=== PATIENT | male | born 1965 | race African-American/Black ===

== ENCOUNTER 2017-12-06 23:42 | Emergency (ER) | payer MEDICAID ==
[~2017-12-06] VITALS: Ht 154.9 cm; Wt 55.0 kg
[2017-12-06 23:45] VITALS: BP 139/99
== END 2017-12-07 05:09 | disposition left against medical advice (07) ==
LOC: ER 23:42
DX: Z53.21 Procedure and treatment not carried out due to patient leaving prior to being seen by health care provider (principal); F17.200 Nicotine dependence, unspecified, uncomplicated

== ENCOUNTER 2019-03-07 23:18 | Emergency (ER) | payer MEDICAID ==
[~2019-03-07] VITALS: Ht 147.3 cm; Wt 46.0 kg
[2019-03-08] MEDS ORDERED: ONDANSETRON HCL 4MG/2ML INJ IV STA (03:07)
[2019-03-08] MEDS ORDERED: KETOROLAC 30MG/ML VIAL IV STA (03:07)
[2019-03-08] MEDS ORDERED: SODIUM CHLORIDE 0.9% 1,000 ML IV ONE (03:07)
[2019-03-08 03:58] LABS: BASOPHILS % 0.1 % (0.0-2.0); EOSINOPHILS % 0.4 % (0.0-5.0); HEMATOCRIT. 33.2 % (36.0-48.0); HEMOGLOBIN. 11.5 g/dL (12.0-16.0); LYMPHOCYTES % 7.7 % (20.0-50.0); MEAN CORPUSCULAR HEMOGLOBIN 28.7 pg (28.0-32.0); MEAN CORPUSCULAR VOLUME 83.1 fL (81.0-99.0); MEAN PLATELET VOLUME 7.8 fl (7.4-10.4); MONOCYTES % 5.4 % (2.0-8.0); NEUTROPHILS % 86.4 % (40.0-76.0); PLATELET 300 x1000/uL (130-400); RED CELL DISTRIBUTION WIDTH 15.3 % (11.6-14.6)
[2019-03-08 04:04] LABS: CHLORIDE 107 mEq/L (98-107)
[2019-03-08] MEDS ORDERED: IOHEXOL-300 100 ML BOTTLE ONE (06:00)
[2019-03-08 08:00] VITALS: BP 157/87
== END 2019-03-08 09:08 | disposition left against medical advice (07) ==
LOC: ER 23:18
DX: S39.91XA Unspecified injury of abdomen, initial encounter (principal); S29.9XXA Unspecified injury of thorax, initial encounter; E11.9 Type 2 diabetes mellitus without complications; I10 Essential (primary) hypertension; F31.9 Bipolar disorder, unspecified; Z59.0 Homelessness; Z86.11 Personal history of tuberculosis; Z90.49 Acquired absence of other specified parts of digestive tract; X58.XXXA Exposure to other specified factors, initial encounter; Y93.89 Activity, other specified; Y92.89 Other specified places as the place of occurrence of the external cause
CPT/HCPCS: 36415; 70450; 71045; 74177; 80053; 82962; 85025; 96374; 96375; 99284; J1885; J2405; J7030; Q9967